=== PATIENT | male | born 1985 | race Caucasian/White ===

== ENCOUNTER 2016-09-21 11:54 | Emergency (ER) | payer OTHER ==
[~2016-09-21] VITALS: Ht 190.5 cm; Wt 122.5 kg
[~2016-09-21 11:54] MED LIST: HYDR-4100; [UNRECOGNIZED DRUG - CODE]
[2016-09-21 12:15] VITALS: BP 130/84; PULSE 67; RESP 16; TEMP 97.6; O2SAT 95
--- NOTE | 2016-09-21 12:20 | NUR ---
Patient to ER bed 2 to gown for evaluation. Side rails up. Report given to Oscar MICHEL.
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
--- NOTE | 2016-09-21 12:30 | NUR ---
ER at bedside examining patient.
[2016-09-21] MEDS ORDERED: KETOROLAC TROMETHAMINE 60 MG/2 ML VIAL IM ONE (13:15)
[2016-09-21] MEDS ORDERED: fentaNYL CITRATE/PF 100 MCG/2 ML AMP IM ONE (13:15)
[2016-09-21] MEDS ORDERED: ONDANSETRON 4 MG ODT TAB PO ONE (13:15)
--- NOTE | 2016-09-21 13:40 | NUR ---
Note undone in EDM - 09/21/16 at 1624 by ROLY Patient given written and verbal discharge instructions and verbalizes understanding. ER MD discussed with patient the results and treatment provided. Given copies of tests performed in ER. Patient in stable condition. ID arm band removed. Rx of negrita jacobs soma given. Patient educated on pain management and to follow up with PMD. Pain Scale 0. Opportunity for questions provided and answered.
--- NOTE | 2016-09-21 13:45 | NUR ---
Pt tolerated medicated well.
--- NOTE | 2016-09-21 14:40 | NUR ---
Pt's pain resolved.Continuing to monitor.Worker's comp form given to Dr. Sellers.
[2016-09-21 15:10] VITALS: BP 130/84; PULSE 67; RESP 16; TEMP 97.6; O2SAT 95
--- NOTE | 2016-09-21 15:10 | NUR ---
Patient given written and verbal discharge instructions and verbalizes understanding. ER MD discussed with patient the results and treatment provided. Given copies of tests performed in ER. Patient in stable condition. ID arm band removed. Rx of reynaldo reessoma given. Patient educated on pain management and to follow up with PMD. Pain Scale 0. Opportunity for questions provided and answered.
== END 2016-09-21 15:10 | disposition home or self-care (01) ==
LOC: SED 11:54
DX: S13.4XXA Sprain of ligaments of cervical spine, initial encounter (principal); S39.012A Strain of muscle, fascia and tendon of lower back, initial encounter; J45.909 Unspecified asthma, uncomplicated; V89.2XXA Person injured in unspecified motor-vehicle accident, traffic, initial encounter; Y93.89 Activity, other specified; Y92.410 Unspecified street and highway as the place of occurrence of the external cause; Y99.8 Other external cause status
CPT/HCPCS: 72040; 72100; 73030; 96372; 99284; J1885; J3010; Q0162